=== PATIENT | male | born 1935 | race Caucasian/White ===

== ENCOUNTER 2021-06-30 09:40 | Emergency (ER) | payer MEDICARE ==
[~2021-06-30] VITALS: Ht 190.5 cm; Wt 100.0 kg
--- NOTE | 2021-06-30 09:52 | PHYS DOC ---
General Adult EDM: Chief Complaint: ABDOMINAL PAIN HPI: HPI: Patient is a 85 year old female brought in by EMS from his assisted living facility for reported vomiting. The patient denies any nausea. He denies chest pain, dyspnea. He denies abdominal pain. His preferred hospital [facility] in [place], and he lives in [place]. However, EMS reported that they noted heart rate in the 20s, and the patient reportedly told them that he was dizzy when this occurred, so they elected to bring him here instead. Patient denies this. He denies dizziness, headache, numbness, tingling, motor weakness. He denies diarrhea or constipation. He denies any symptoms at all. He is very angry that he is here and wants to go home immediately. He has chronic atrial fibrillation, has a pacemaker and has chronic bradycardia. He tells me multiple times, "42 is my normal heart rate." The patient has [place] no complaints at all at present. Review of Systems: Review of Systems: Constitutional: Denies fever or chills. [] Eyes: Denies vision loss HENT: Denies nasal congestion or sore throat. [] Respiratory: Denies cough or shortness of breath. [] Cardiovascular: Denies chest pain or edema. He denies palpitations. GI: Reportedly had an episode of vomiting earlier today, the patient denies any nausea currently. Denies constipation or diarrhea. He denies abdominal pain : Denies urinary symptoms Musculoskeletal: Denies back pain or joint pain. [] Integument: Denies rash. [] Neurologic: Denies headache, focal weakness or sensory changes. She denies any dizziness, vertigo, fall, head injury or syncope. Endocrine: Denies polyuria or polydipsia. [] Lymphatic: Denies swollen glands. [] Psychiatric: Denies depression or anxiety. [] Heart Score: C/O Chest Pain: No Risk Factors: Risk Factors: DM, Current or recent (<one month) smoker, HTN, HLP, family history of CAD, obesity. Risk Scores: Score 0 - 3: 2.5% MACE over next 6 weeks - Discharge Home Score 4 - 6: 20.3% MACE over next 6 weeks - Admit for Clinical Observation Score 7 - 10: 72.7% MACE over next 6 weeks - Early Invasive Strategies Physical Exam: PE: Constitutional: Well developed, well nourished, no acute distress, non-toxic appearance. He is chronically ill-appearing, though he appears well acutely. HENT: Normocephalic, atraumatic, is a healing appearing bruise of his left cheek. There is no tenderness or no significant soft tissue swelling. TMs are clear bilaterally. Nares are patent without rhinorrhea epistaxis. No hemotympanum. Eyes: PERRL, EOMI, conjunctiva normal, no discharge. No nystagmus Neck: Normal range of motion, no tenderness, supple, no stridor. Meningismus, trachea midline, no JVD Cardiovascular: Bradycardic, irregularly irregular, +2 posterior tibial and +2 radial pulses bilaterally Lungs & Thorax: Bilateral breath sounds clear to auscultation [] Abdomen: Abdomen soft, nondistended, nontender to palpation. Normal bowel sounds. No palpable mass organomegaly. No flank abdominal ecchymoses. No palpable pulsatile mass. Skin: Warm, dry, no erythema, no rash. [] Back: No tenderness, no CVA tenderness. [] Extremities: No tenderness, no cyanosis, no clubbing, ROM intact, no edema. No calf tenderness Neurologic: Alert and oriented X 3, normal motor function, normal sensory function, no focal deficits noted. He is briskly ambulatory here in the ED, nonfocal exam. Psychologic: Affect normal, judgement normal, mood normal. Somewhat agitated initially, but he is overall cooperative and redirectable EKG: EKG: EKG is interpreted at 1028 Rhythm is atrial fibrillation Rate is 52 bpm PVCs No STEMI Radiology/Procedures: Radiology/Procedures: IMAGING REPORT Signed PATIENT: KASHIF NICOLAS ACCOUNT: [id number] : 1935 LOCATION: ER AGE: 85 SEX: M EXAM STATUS: REG ER ORD. PHYSICIAN: BARAK FLOREZ DO REASON: facial bruising PROCEDURE: CT HEAD WO CONTRAST CT HEAD/BRAIN WO Date: 06/30/2021 10:34 AM Clinical Indication: facial bruising, pain: Comparison: None. Technique: 5 mm axial tomographic images were obtained of the head without contrast. These were viewed on brain and bone windows. One or more of the following dose reduction techniques were utilized: Automated exposure control ( AEC), Adjustment of mA and/or kV according to patient size, Use of iterative reconstruction technique such as ASiR, CT scan done according to ALARA and image gently/image wisely Findings: Mild generalized cerebral and cerebellar volume loss. Mild nonspecific periventricular hypoattenuation, most commonly seen with chronic small vessel ischemic disease. Calcified atherosclerosis of the bilateral cavernous and paraclinoid internal carotid arteries. Small area of left frontal encephalomalacia No intra- or extra-axial mass or fluid collection. No acute hemorrhage. The ventricles are normal in size, shape, and morphology. The samuel-white matter junction is normal. The subarachnoid cisterns are patent. The visualized paranasal sinuses are normal. The visualized portions of the orbits and globes are normal. The mastoid air cells are clear. 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 Impression: No acute intracranial process. Electronically signed by: Angela Leung MD (06/30/2021 10:53 AM) [id number] DICTATED and SIGNED BY: ANGELA LEUNG MD DATE: 06/30/21 [id number] IMAGING REPORT Signed PATIENT: KASHIF NICOLAS ACCOUNT: [id number] : 1935 LOCATION: ER AGE: 85 SEX: M EXAM STATUS: PRE ER ORD. PHYSICIAN: BARAK FLOREZ DO REASON: NAUSEA, VOMITING, CHEST PAIN PROCEDURE: PORTABLE CHEST 1V AP chest. HISTORY: Nausea, vomiting, chest pain AP view was taken of the chest. There is a left pacemaker with a ventricular pacing lead. There is slight blunting of the left costophrenic angle small effusion is possible or mild basilar atelectasis. Patient's taken a poor inspiration. I do not have an old study for comparison. There are no other confluent infiltrates. Heart is upper normal in size. IMPRESSION: 1. Haziness in the left lung base from small effusion or mild basilar atelectasis or infiltrate. Electronically signed by: Paul Haley MD (06/30/2021 10:26 AM) [facility] DICTATED and SIGNED BY: PAUL HALEY MD DATE: 06/30/21 [id number] 0 Course & Med Decision Making: Course & Med Decision Making Pertinent Labs and Imaging studies reviewed. (See chart for details) The patient remains relatively bradycardic, though he is asymptomatic. Emergency room work-up is unremarkable for any obvious acute life-threatening process. The patient is insistent that he goes home back to his care facility. He has no complaints. He is a been observed in the ER for several hours. He has not vomited, he denies nausea, he has a benign, nonsurgical abdominal exam, denies any abdominal pain. The findings, differential diagnosis are discussed with the patient. His care facility is informed of the findings. He will be discharged back there. He is discharged in stable condition. He may return at anytime, For any concerns. Dragon Disclaimer: Dragon Disclaimer: This electronic medical record was generated, in whole or in part, using a voice recognition dictation system. Departure Departure Impression: Primary Impression: History of vomiting Additional Impression: Bradycardia Disposition: [facility] Condition: STABLE Patient Instructions: Bradycardia, Nausea and Vomiting Additional Instructions: Return to the ER for chest pain, difficulty breathing, fever of 100.4 or higher, for vomiting blood, abdominal pain, weakness, acute injury or trauma, for passing out, dehydration or other concerns. Continue taking your regularly prescribed medication as directed. Follow up with your primary care doctor and cardiology as scheduled. BARAK FLOREZ DO Jun 30, 2021 09:52
[2021-06-30 10:07] LABS: BASO % 0 % (0-3); EOS # 0.2 x10^3/uL (0.0-0.7); EOS % 3 % (0-3); HEMATOCRIT 42.1 % (39.0-53.0); HEMOGLOBIN 13.7 g/dL (13.0-17.5); LYMPH # 1.1 x10^3/uL (1.0-4.8); LYMPH % 24 % (24-48); MEAN CORPUSCULAR HEMOGLOBIN 32 pg (25-35); MEAN CORPUSCULAR HGB CONC 33 g/dL (31-37); MEAN CORPUSCULAR VOLUME 98 fL (79-100); MONO # 0.8 x10^3/uL (0.0-1.1); MONO % 18 % (0-9); NEUT # 2.4 x10^3/uL (1.8-7.7); NEUT % 54 % (31-73); PLATELET COUNT 102 x10^3/uL (140-400); RED BLOOD COUNT 4.29 x10^6/uL (4.30-5.70); RED CELL DISTRIBUTION WIDTH 13.5 % (11.5-14.5); WHITE BLOOD COUNT 4.4 x10^3/uL (4.0-11.0)
[2021-06-30 10:18] LABS: PROTHROMBIN TIME PATIENT 21.6 SEC (11.7-14.0)
[2021-06-30 10:25] LABS: CALCIUM 8.4 mg/dL (8.5-10.1); CREATININE 1.4 mg/dL (0.7-1.3); GFR 47.9; POTASSIUM 4.1 mmol/L (3.5-5.1)
--- NOTE | 2021-06-30 10:28 | RAD ---
AP chest. HISTORY: Nausea, vomiting, chest pain AP view was taken of the chest. There is a left pacemaker with a ventricular pacing lead. There is sl ight blunting of the left costophrenic angle small effusion is possible or mild basilar atelectasis. Patient's taken a poor inspiration. I do not have an old study for comparison. There are no other con fluent infiltrates. Heart is upper normal in size. IMPRESSION: 1. Haziness in the left lung base from small effusion or mild basilar atelectasis or infiltrate. Electronically signed by: Paul Haley MD (06/30/2021 10:26 AM) [facility]
[2021-06-30 10:31] LABS: ALBUMIN 3.9 g/dL (3.4-5.0); ALBUMIN/GLOBULIN RATIO 1.2 (1.0-1.7); MAGNESIUM 1.9 mg/dL (1.8-2.4); PHOSPHORUS 3.2 mg/dL (2.6-4.7); TOTAL BILIRUBIN 0.4 mg/dL (0.2-1.0); TOTAL PROTEIN 7.2 g/dL (6.4-8.2)
[2021-06-30 10:53] LABS: BILIRUBIN,URINE NEGATIVE (NEG); CLARITY,URINE CLEAR; COLOR,URINE YELLOW; NITRITE,URINE NEGATIVE (NEG); PH,URINE 5.5 (<5.0-8.0); PROTEIN,URINE 30 mg/dL (NEG-TRACE); UROBILINOGEN,URINE 0.2 mg/dL (0.2 mg/dL)
[2021-06-30 10:56] LABS: BACTERIA,URINE FEW /HPF (0-FEW); RBC,URINE OCC /HPF (0-2); WBC,URINE OCC /HPF (0-4)
--- NOTE | 2021-06-30 10:56 | RAD ---
CT HEAD/BRAIN WO Date: 06/30/2021 10:34 AM Clinical Indication: facial bruising, pain: Comparison: None. Technique: 5 mm axial tomographic images were obtained of the head without contrast. These were view ed on brain and bone windows. One or more of the following dose reduction techniques were utilized: A utomated exposure control (AEC), Adjustment of mA and/or kV according to patient size, Use of iterati ve reconstruction technique such as ASiR, CT scan done according to ALARA and image gently/image alejo ly Findings: Mild generalized cerebral and cerebellar volume loss. Mild nonspecific periventricular hypoattenuatio n, most commonly seen with chronic small vessel ischemic disease. Calcified atherosclerosis of the bi lateral cavernous and paraclinoid internal carotid arteries. Small area of left frontal encephalomalacia No intra- or extra-axial mass or fluid collection. No acute hemorrhage. The ventricles are normal in size, shape, and morphology. The samuel-white matter junction is normal. The subarachnoid cisterns are patent. The visualized paranasal sinuses are normal. The visualized portions of the orbits and globes are no rmal. The mastoid air cells are clear. 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 Impression: No acute intracranial process. Electronically signed by: Simeon Leung MD (06/30/2021 10:53 AM) [id number]
[2021-06-30 11:25] LABS: % ATYL 1 % (0-0); % BANDS 15 % (0-9); % EOS 2 % (0-5); % LYMPHS 20 % (24-48); % MONOS 16 % (0-10); % MYELOS 1 % (0-0); % SEGS 45 % (35-66); PLT ESTIMATE DECREASED (ADEQUATE)
[2021-06-30 12:15] VITALS: BP 181/75
--- NOTE | 2021-07-01 07:50 | EKG ---
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
== END 2021-06-30 13:30 ==
LOC: ER 09:40
DX: R11.10 Vomiting, unspecified (principal); R00.1 Bradycardia, unspecified; R42 Dizziness and giddiness; I48.20 Chronic atrial fibrillation, unspecified; Z95.0 Presence of cardiac pacemaker
CPT/HCPCS: 36415; 70450; 71045; 80053; 81001; 83605; 83690; 83735; 84100; 84484; 85007; 85025; 85610; 85730; 87040; 93005; 99285-25